=== PATIENT | female | born 1965 | race Caucasian/White ===

== ENCOUNTER → 2021-12-03 | Day surgery (SDC) | payer BC ==
--- NOTE | 2021-12-03 11:39 | RAD REPORT ---
EXAM DESCRIPTION: US - Breast Core BX w/US Guidance - 12/03/2021 11:01 am CLINICAL HISTORY: R92.8 COMPARISON: Breast ultrasound 11/25/2021, mammogram 11/15/2021 TECHNIQUE: The patient presents for ultrasound-guided biopsy of a previously detailed 12 o'clock rig ht breast mass complex. The ultrasound-guided core biopsy procedure, risks and alternatives were discussed with the patient i n detail. After answering all questions, both oral and written consent were obtained. Time out proced ure was performed. The patient had no contraindicated allergy or medication history. Mammogram demonstrated abutting 15 mm and 10 mm spiculated masses in the 12 o'clock right breast. Son ographic correlate was seen on the November 25 study. Preliminary imaging identified the right breast bradley s. The right breast was prepped and draped in the usual sterile fashion. From a(n) lateral approach, skin and deeper tissues were anesthetized with 1% lidocaine. Under direct sonographic visualization a 12 gauge vacuum assisted core biopsy needle was advanced and placed at the margin of the mass. There were a total of 5 core biopsies obtained under direct sonographic guidance. The 2 abutting spiculate d masses showed progressive distortion of the tissue with the masses more poorly defined with the eac h subsequent biopsy. It is believed the masses for adequately sampled based on the final appearance o f the breast tissue. At the conclusion of the procedure a localization clip was placed under sonographic guidance. Post biopsy imaging showed no hematoma or measurable bleeding within the breast. Hemostasis was obtai ariella at the skin site with a sterile bandage placed. Post procedure care and precaution instructions were given to the patient. IMPRESSION: 1. Ultrasound-guided core biopsy was performed of the right breast masses. All obtained material was given to pathology for histologic assessment. 2. Post biopsy localization clip was placed under ultrasound guidance.
== END ==
LOC: DS 10:12
PROVIDERS: ATTEND Clinical Nurse Specialist Women's Health
DX: C50.911 Malignant neoplasm of unspecified site of right female breast (principal); Z17.0 Estrogen receptor positive status [ER+]
CPT/HCPCS: 19083; 88305